=== PATIENT | female | born 1945 | race Caucasian/White ===

== ENCOUNTER 2019-03-01 03:37 | Inpatient (IN) ==
--- NOTE | 2019-02-27 13:25 | EKG Report ---
Test Performed on : 02/27/2019 1:19:50 PM Test Reason : PAT Blood Pressure : / mmHG Vent. Rate : 075 BPM Atrial Rate : 075 BPM P-R Int : 160 ms QRS Dur : 132 ms QT Int : 436 ms P-R-T Axes : 024 -07 152 degrees QTc Int : 486 ms Normal sinus rhythm. Left bundle branch block Abnormal ECG No previous ECGs available Confirmed by Nahid Chacko MD ([id number]) on 02/28/2019 6:14:52 PM
[2019-02-27 13:36] LABS: URINE SOURCE CLEAN CATCH
[2019-02-27 13:40] LABS: BASO# 0.06 X1000 (0.0-0.2); BASO% 0.7 % (0.0-0.8); BILIRUBIN URINE NEGATIVE (NEGATIVE); BLOOD URINE NEGATIVE (NEGATIVE); COLOR YELLOW; EOS# 0.11 X1000 (0.0-0.7); EOS% 1.3 % (0.0-10.0); GLUCOSE URINE NEGATIVE (NEGATIVE); HEMATOCRIT 34.8 % (37.0-47.0); IMM GRAN# 0.02 X1000 (0.0-0.04); IMM GRAN% 0.2 % (0.0-0.5); KETONE URINE NEGATIVE (NEGATIVE); LEUKOCYTES URINE NEGATIVE (NEGATIVE); LYMPH# 2.32 X1000 (1.2-3.4); MCH 28.8 PG (27-31); MCHC 31.6 g/dL (33-37); MCV 91.1 FL (81-99); MONO# 0.43 X1000 (0.11-0.59); MONO% 5.2 % (1.7-9.3); MPV 9.9 FL (7.4-10.4); NEUT# 5.35 X1000 (1.4-6.5); NEUT% 64.6 % (42.2-75.2); NITRITE URINE NEGATIVE (NEGATIVE); PH URINE 7.5; PLT 347 X1000 (130-400); PROTEIN URINE NEGATIVE (NEGATIVE); RBC 3.82 XMIL (4.2-5.4); RDW 14.8 % (11.5-14.5); SP GRAVITY URINE 1.012; TURBIDITY URINE CLEAR (CLEAR); UR EPITHELIAL CELLS <10 /HPF (<10); URINE BACTERIA NEGATIVE /HPF; URINE RBC <10 /HPF (<10); URINE WBC <10 /HPF (<10); UROBILINOGEN URINE NORMAL (NORMAL); WBC 8.29 X1000 (4.8-10.8)
[2019-02-27 13:54] LABS: INR 0.98; PROTIME 13.1 Seconds (11.0-16.0); PTT 32.6 Seconds (22.3-41.8)
[2019-02-27 13:55] LABS: HEMOGLOBIN A1C 8.1 % (4.8-6.0)
[2019-02-27 14:04] LABS: AGAP 11; ALBUMIN 3.6 g/dL (3.5-5.0); BUN 9 mg/dL (8-22); CALCIUM 9.8 mg/dL (8.8-10.2); CHLORIDE 100 mmol/L (98-107); COSMO 282; CREATININE 0.6 mg/dL (0.5-0.9); ESTIMATED GFR > 60; GLUCOSE 163 mg/dL (70-104); POTASSIUM 4.7 mmol/L (3.5-5.1); SODIUM 140 mmol/L (136-145); TCO2 29 mmol/L (25-35)
[2019-03-01] MEDS ORDERED: COLACE ONE (10:15)
[2019-03-01] MEDS ORDERED: LYRICA ONE (10:16)
[2019-03-01] MEDS ORDERED: KEFZOL 1 GM/D5W 1 GM/50 ML IVPB ONE (10:16)
[2019-03-01] MEDS ORDERED: CELEBREX ONE (10:16)
[2019-03-01] MEDS ORDERED: PEPCID ONE (10:16)
[2019-03-01] MEDS ORDERED: REGLAN ONE (10:16)
[2019-03-01] MEDS ORDERED: LR 1,000 ML ONE (10:16)
[2019-03-01] MEDS ORDERED: DIPRIVAN 1% ONE (10:17)
[2019-03-01] MEDS ORDERED: XYLOCAINE-MPF 2% ONE (10:18)
[2019-03-01] MEDS ORDERED: ROBINUL ONE (10:18)
[2019-03-01] MEDS ORDERED: QUELICIN (DOSE) ONE (10:18)
[2019-03-01] MEDS ORDERED: DURAMORPH ONE (11:56)
[2019-03-01] MEDS ORDERED: CYKLOKAPRON 1,000 MG/NS 1,000 MG/100 ML IVPB ONE (11:57)
[2019-03-01] MEDS ORDERED: MARCAINE 0.25% PF ONE ×2 (11:57→12:16)
[2019-03-01] MEDS ORDERED: SODIUM CHLORIDE 0.9% ONE (11:57)
[2019-03-01] MEDS ORDERED: TORADOL ONE ×2 (11:57→12:46)
[2019-03-01] MEDS ORDERED: EXPAREL 1.3% ONE ×2 (11:58)
[2019-03-01] MEDS ORDERED: NEOSPORIN G.U. IRRIGANT ONE (11:58)
[2019-03-01] MEDS ORDERED: VANCOMYCIN ONE (12:16)
[2019-03-01] MEDS ORDERED: OFIRMEV 1000 MG/ISOTONIC SOLN 1,000 MG/100 ML BOTTLE ONE (12:46)
[2019-03-01] MEDS ORDERED: DECADRON ONE (12:46)
[2019-03-01] MEDS ORDERED: ZOFRAN ONE (12:46)
[2019-03-01] MEDS ORDERED: ZEMURON ONE (12:50)
[2019-03-01 13:37] LABS: URINE SOURCE CATH
[2019-03-01 13:52] LABS: BILIRUBIN URINE NEGATIVE (NEGATIVE); BLOOD URINE SMALL (NEGATIVE); COLOR YELLOW; GLUCOSE URINE NEGATIVE (NEGATIVE); KETONE URINE NEGATIVE (NEGATIVE); LEUKOCYTES URINE NEGATIVE (NEGATIVE); NITRITE URINE NEGATIVE (NEGATIVE); PH URINE 5.5; PROTEIN URINE NEGATIVE (NEGATIVE); SP GRAVITY URINE 1.011; TURBIDITY URINE CLEAR (CLEAR); UROBILINOGEN URINE NORMAL (NORMAL)
[2019-03-01 13:54] LABS: UR EPITHELIAL CELLS <10 /HPF (<10); URINE BACTERIA NEGATIVE /HPF; URINE RBC <10 /HPF (<10); URINE WBC <10 /HPF (<10)
[2019-03-01] MEDS ORDERED: NS 1,000 ML ONE (14:21)
[2019-03-01] MEDS: DILAUDID ONE ×3 (14:38→14:49)
--- NOTE | 2019-03-01 14:42 | Diag Imaging Result Doc PS360 ---
SHOULDER 1 VIEW RIGHT - 03/01/2019 INDICATION: R TSA TECHNIQUE: COMPARISON: 02/19/2019 FINDINGS: There has been right total shoulder arthroplasty. No hardware fracture or loosening. Alignment is anatomic. IMPRESSION: No complication. Electronically signed by Lizandro Mello 03/01/2019 2:39 PM
[2019-03-01] MEDS ORDERED: LABETALOL ONE (14:50)
[2019-03-01] MEDS ORDERED: MORPHINE IV PRN ×6 (15:15→17:15)
[2019-03-01] MEDS ORDERED: OXY IR PO PRN ×4 (15:15→17:15)
[2019-03-01] MEDS ORDERED: ZOFRAN PO PRN ×2 (15:15→17:15)
[2019-03-01] MEDS ORDERED: MILK OF MAGNESIA PO PRN ×2 (15:15→17:15)
[2019-03-01] MEDS ORDERED: MORPHINE SULFATE 40 MG PO PRN (16:30)
[2019-03-01] MEDS ORDERED: PERCOCET-5 PO PRN (16:30)
[2019-03-01] MEDS ORDERED: DUONEB (A & A) INH PRN (16:30)
[2019-03-01] MEDS ORDERED: IMODIUM PO PRN (16:30)
[2019-03-01] MEDS ORDERED: VENTOLIN HFA INH PRN ×2 (16:30)
[2019-03-01] MEDS ORDERED: NEURONTIN PO PRN (16:30)
[2019-03-01] MEDS ORDERED: COZAAR PO ONE (16:41)
[2019-03-01] MEDS: NS 1,000 ML IV SCH (17:08)
[2019-03-01] MEDS ORDERED: APRESOLINE IV PRN (17:48)
[2019-03-01] MEDS: KEFZOL 1 GM/D5W 1 GM/50 ML IVPB IV SCH (18:42)
[2019-03-01] MEDS ORDERED: CYKLOKAPRON 1,000 MG/NS 1,000 MG/100 ML IVPB IV ONE (18:45)
[2019-03-01] MEDS: PERIDEX MT SCH (19:46)
[2019-03-01] MEDS: ZOCOR PO SCH (19:47)
--- NOTE | 2019-03-01 20:47 | OPERATIVE NOTE ---
PROCEDURE DATE: 03/01/2019 PREOPERATIVE DIAGNOSIS: Right displaced proximal humerus fracture. POSTOPERATIVE DIAGNOSIS: Right displaced proximal humerus fracture. PROCEDURE: Right reverse shoulder arthroplasty with DePuy Delta Xtend size 8 cemented stem, a 38 + 9 humeral cup, a size 38 + 8 mm lateralized Eccentric Glenosphere, a standard Metaglene. SURGEON: Dr. Bashir Vu. NETWORK ANNOUNCER: NILDA Noonan, who was necessary for proper positioning, retraction, manipulation of the extremity during the case, and improved efficiency. ANESTHESIA: General. IV FLUIDS: 1500 mL lactated Ringer's. ESTIMATED BLOOD LOSS: 150 mL. COMPLICATIONS: None. INDICATION: The patient is a 74-year-old female who is status post a fall on 02/19/2019, sustaining a right proximal humeral fracture. She presented to the office and had some increased displacement on the most recent x-ray, and a recommendation to proceed with right reverse total shoulder arthroplasty was offered. The risks and benefits of surgery were explained, including the risks of anesthesia, , bleeding, infection, failure to relieve pain, postoperative stiffness, nerve injury, blood clots, and other imponderables. All questions were answered. The patient and family wished to proceed with surgery. DETAILS OF OPERATION: The patient was taken to the operating room and placed supine on the operating table. Once adequate anesthesia was obtained, the patient was placed in semi-Sanchez beach-chair position. The right shoulder was subsequently prepped and draped in the usual sterile fashion. A standard deltopectoral incision was made with a skin knife. Hemostasis was obtained using electrocautery. The deltopectoral interval was then developed and Alexander retractor was placed. The clavipectoral fascia was elevated and the fracture site was identified. The proximal bone fragment, including the humeral head and tuberosity fragments, were identified. They were then removed under sharp dissection. After removing the remaining bone debris, attention then turned to the glenoid. The biceps tendon was released from its insertion site. Circumferential dissection was then performed with a deep knife. Attention then turned to the glenoid. Circumferential dissection was performed with a deep knife. A guide was then placed on the glenoid and a guide pin was placed. Reaming was then conducted. The central hole was then dilated. The guide pin was removed. The wound was copiously irrigated with pulsatile lavage. A standard Metaglene was then placed. Two locking screws were placed and one nonlocking screw. Had good fixation. The wound was copiously irrigated once again. A 38 + 8 mm lateralized Eccentric Glenosphere was then placed with eccentricity placed inferiorly. After this was performed, attention was then turned to the humerus. Reaming was then conducted to size 8 mm. A trial stem was then placed to determine the correct height. After this was performed, vancomycin was mixed with cement on the back table. Intramedullary canal was copiously irrigated. The cement was then placed in the intramedullary canal. The humeral stem was then placed to the appropriate height and approximately 15 degrees of retroversion. After cement had cured, trial cup size was then placed and a 38 + 9 humeral cup had excellent stability range of motion. Trial cup was removed. The wound was copiously irrigated. The 38 + 9 humeral cup was then impacted. Shoulder was reduced and carried through range of motion. It had excellent stability and range of motion. Exparel was placed in deep soft tissue as well as the subcutaneous tissue. The wound was copiously irrigated once again with pulsatile lavage. A 2-0 Vicryl was used to repair subcutaneous tissue followed by running 2-0 Prolene. Benzoin and Steri-Strips were applied. Adaptic, sterile 4 x 4's, ABD pad, and tape were applied to the right shoulder followed by a shoulder immobilizer. All counts were correct. Patient tolerated the procedure well and was transferred to the recovery room in stable condition. cc: Bashir Vu MD
--- NOTE | 2019-03-01 22:38 | CONSULTATION ---
DATE OF CONSULTATION: 03/01/2019 PRIMARY CARE PHYSICIAN: Dr. Palmer. ATTENDING: Orthopedics. CHIEF COMPLAINT: Consulted for medical management of comorbidities. HISTORY OF PRESENTING ILLNESS: This is a 74-year-old female who presented for a right shoulder total arthroplasty today. Tolerated the procedure well. Has a history of hypertension and diabetes. She has had some elevation in her blood pressure. When she arrived she was 151/92. Currently, she is up to 184/74. We will continue her home medications and we will also place her on hydralazine 10 mg IV q.4 hours p.r.n. for systolic blood pressure greater than 190, diastolic greater than 100, and we will continue to follow this patient throughout the remainder of her hospitalization. PAST MEDICAL HISTORY: Diabetes type 2, hypertension, panic attacks, GERD and arthritis. PAST SURGICAL HISTORY: Hysterectomy, bilateral feet surgery, cholecystectomy and appendectomy. FAMILY HISTORY: Reviewed and noncontributory. SOCIAL HISTORY: She currently lives with family. She is a former smoker. Denies any alcohol or illicit drug use. ALLERGIES TO: Meperidine, acetaminophen and hydrocodone. HOME MEDICATIONS: They are holding her Zofran 4 mg p.o. p.r.n.. Continuing the following: ProAir 1 puff inhalation p.r.n., Ventolin inhaler 1 puff inhalation p.r.n., aspirin 81 mg p.o. daily, Pristiq 50 mg p.o. daily, esomeprazole 40 mg p.o. daily, estradiol 1 mg p.o. daily, fenofibrate 145 mg p.o. daily, Lasix 80 mg p.o. daily, gabapentin 600 mg 2 tablets p.o. q.8 hours p.r.n., Combivent Respimat inhalation p.r.n., loperamide 2 mg p.o. p.r.n., losartan 25 mg p.o. daily, morphine sulfate 40 mg p.o. p.r.n., Percocet 5 one p.o. p.r.n., propranolol 10 mg p.o. daily, potassium 8 mEq p.o. daily, simvastatin 20 mg p.o. at bedtime. LABORATORY DATA: No new labs today, except for her glucose was 145. Urinalysis was negative. Shoulder x-ray of the right shoulder showed no complications and there had been a total right shoulder arthroplasty. No hardware fracture or loosening. Alignment is anatomic. REVIEW OF SYSTEMS: She denied any fever, chills, blurred vision, dizziness, chest pain, coughing, shortness of breath. She denied any abdominal pain, constipation, diarrhea, burning or hurting with urination. PHYSICAL EXAMINATION: Vital signs: On arrival, she had a temperature of 97.8 degrees, pulse 70, respirations 18, blood pressure 117/100, saturating 96% on room air. Currently, her blood pressure is 184/74. General: This is a 74-year-old female who is sitting up in the bed. Answers questions appropriately. HEENT: Normocephalic, atraumatic. Normal ENT inspection. Oropharynx and nares are clear. Eyes: Pupils are equal, round, and reactive to light and accommodation. Extraocular movements are intact. Neck: Normal inspection. Normal range of motion. Lungs: Clear to auscultation bilaterally with equal lung expansion. Chest wall movement. Heart: Regular rate and rhythm. No murmurs, rubs, or gallops. Abdomen: Soft, nontender, nondistended. Bowel sounds are present x4 quadrants. Musculoskeletal: She has 5/5 strength bilateral lower extremities and left upper extremity. Her right extremity has a dressing to her right shoulder and is currently in a sling status post her right total shoulder arthroplasty today. Neurological: The cranial nerves 2-12 appear grossly intact. ASSESSMENT: 1. Status post right total shoulder arthroplasty. 2. Hypertension. 3. Diabetes type 2. 4. Gastroesophageal reflux disease. OUR PLAN: We will continue her home medications. I will place her on hydralazine 10 mg IV q.4 hours p.r.n. for a systolic blood pressure greater than 190, diastolic greater than 100. Continue her current pain management regimen per Orthopedics. Placed on a diabetic diet. Physical therapy will be following and they will recheck hemoglobin and hematocrit and a basic metabolic in the a.m.. We appreciate the consultation and will follow this patient throughout the remainder of her stay. Dictated by NILDA Sparks for El Montaño MD Addendum: Patient seen and examined by myself. Agree with NILDA note. It reflects my assessment and plan. Patient is being admitted to hospital for right shoulder arthroplasty. We have been consulted for medical management. Will be checking accuchecks before meals and also at bedtime. cc: NILDA Sparks MD Robert S. Tapscott, MD Dr. Gillespie MTDD
[2019-03-02] MEDS: KEFZOL 1 GM/D5W 1 GM/50 ML IVPB IV SCH (02:31)
[2019-03-02] MEDS: PERIDEX MT SCH ×3 (03:28→23:43)
[2019-03-02] MEDS: ZOCOR PO SCH ×2 (03:28→23:44)
[2019-03-02] MEDS: NS 1,000 ML IV SCH (04:44)
[2019-03-02 08:02] LABS: HEMATOCRIT 26.2 % (37.0-47.0); HEMOGLOBIN 8.1 g/dL (12.0-16.0)
[2019-03-02 08:16] LABS: AGAP 10; BUN 11 mg/dL (8-22); CALCIUM 8.1 mg/dL (8.8-10.2); CHLORIDE 100 mmol/L (98-107); COSMO 278; CREATININE 0.8 mg/dL (0.5-0.9); ESTIMATED GFR > 60; GLUCOSE 222 mg/dL (70-104); POTASSIUM 4.2 mmol/L (3.5-5.1); SODIUM 136 mmol/L (136-145); TCO2 26 mmol/L (25-35)
[2019-03-02] MEDS: ESTRACE PO SCH (08:29)
[2019-03-02] MEDS: PRISTIQ ER PO SCH (08:29)
[2019-03-02] MEDS: INDERAL PO SCH (08:30)
[2019-03-02] MEDS: TRICOR PO SCH (08:31)
[2019-03-02] MEDS: MICRO-K PO SCH (08:31)
[2019-03-02] MEDS: LASIX PO SCH (08:31)
[2019-03-02] MEDS: ASPIRIN PO SCH (08:32)
[2019-03-02] MEDS: COZAAR PO SCH (08:32)
[2019-03-02] MEDS: NEXIUM PO SCH (11:27)
[2019-03-02] MEDS: HUMALOG SUBQ SCH ×3 (12:35→23:51)
--- NOTE | 2019-03-02 13:20 | Diag Imaging Result Doc PS360 ---
EXAM: CHEST-1 VIEW HISTORY: rehab TECHNIQUE: Single view COMPARISON: None. FINDINGS: The lungs are well expanded. The heart is not enlarged. The vessels are not distended. There are no infiltrates. No effusion identified. There is a granuloma in the lower left lung with calcified left hilar lymph nodes. Likely minimal scarring in the mid left lung. IMPRESSION: No acute abnormality Electronically signed by Niles Siddiqui 03/02/2019 1:17 PM
--- NOTE | 2019-03-02 17:10 | PROGRESS NOTE ---
DATE: 03/02/2019 SUBJECTIVE: The patient reports feeling fine. She had her right shoulder replacement this morning. She is feeling okay. OBJECTIVE: Vital Signs: Temperature 97.8 degrees, heart rate 68, respiratory rate 16, blood pressure 132/53, O2 saturation 98% on room air. General: This is a 74-year-old female lying in bed, in no acute distress. Cardiovascular: S1, S2 heard. No murmurs, gallops, or rubs. Regular rate and rhythm. Respiratory: Clear bilaterally to auscultation. No work of breathing or using accessory muscles. Abdomen: Soft. Nontender to palpation. Bowel sounds present. No organomegaly. Upper Extremities: Right shoulder covered by dressing, clean. Both lower extremities: No clubbing, cyanosis, or edema. Peripheral pulses present in both legs. Neurological: The patient is alert, oriented x3. Moves extremities except the right upper extremity. LABORATORY DATA: Reviewed. ASSESSMENT AND PLAN: 1. Status post right total shoulder arthroplasty. Orthopedics following this patient. 2. Hypertension. Blood pressure is under control. We will continue with the same management. 3. Diabetes mellitus type 2. We will continue with sliding scale insulin. Accu-Chek before meals and also at bedtime. 4. Gastroesophageal reflux disease. We will continue with Protonix. 5. Disposition. We will continue to follow this patient on a daily basis. cc: El Montaño MD
--- NOTE | 2019-03-02 18:51 | ORTHOPAEDICS PROGRESS NOTE ---
DATE: 03/02/2019 SUBJECTIVE: Ms. Campbell is status post day 1 of a right reverse total shoulder arthroplasty due to a fracture from a fall. She was talking about how she does not have much help at home as her is unable to help her ambulate and mobilize from place to place. She would like to discuss rehab placement due to this, and the fact that she also has neuropathy and type 2 diabetes as well. OBJECTIVE: Ms. Campbell is lying in bed at this time. They are changing her dressing at the present. There is no excessive drainage noted to her surgical dressing. Her incision is clean, dry, and intact. There is no surrounding redness to suggest infection at this time. She has full movement of her fingers of her right hand. Her sensation is intact. She does have some bruising noted to her right upper chest wall as well as down her arm from her fall. ASSESSMENT: 1. Status post day 1 right reverse total shoulder arthroplasty. 2. Type 2 diabetes. 3. Hypertension. PLAN: After discussing with Ms. Campbell and Director Of Consulting Services, they have spoken with her daughter and , who also agreed that it would be best if Ms. Campbell were to go to rehab. She wishes to go to [facility], which is near her home. Director Of Consulting Services is looking for placement at this time, and we are waiting on a prior authorization from [facility]. Dictated by NILDA Noonan for Bashir Vu MD cc: MD El Montalvo MD
[2019-03-03] MEDS ORDERED: OXY IR PO PRN ×2 (06:28)
[2019-03-03] MEDS ORDERED: ULTRAM PO PRN (06:36)
[2019-03-03 07:09] LABS: HEMATOCRIT 27.2 % (37.0-47.0); HEMOGLOBIN 8.3 g/dL (12.0-16.0); MCH 28.5 PG (27-31); MCHC 30.5 g/dL (33-37); MCV 93.5 FL (81-99); MPV 10.2 FL (7.4-10.4); RBC 2.91 XMIL (4.2-5.4); RDW 14.9 % (11.5-14.5); WBC 10.25 X1000 (4.8-10.8)
[2019-03-03 07:42] LABS: AGAP 10; ALBUMIN 3.5 g/dL (3.5-5.0); BUN 12 mg/dL (8-22); CALCIUM 8.6 mg/dL (8.8-10.2); CHLORIDE 104 mmol/L (98-107); COSMO 287; CREATININE 0.7 mg/dL (0.5-0.9); ESTIMATED GFR > 60; GLUCOSE 103 mg/dL (70-104); PHOSPHORUS 2.2 mg/dL (2.7-4.5); SODIUM 144 mmol/L (136-145); TCO2 30 mmol/L (25-35)
[2019-03-03] MEDS: ASPIRIN PO SCH (08:44)
[2019-03-03] MEDS: PRISTIQ ER PO SCH (08:45)
[2019-03-03] MEDS: NEXIUM PO SCH (08:45)
[2019-03-03] MEDS: COZAAR PO SCH (08:45)
[2019-03-03] MEDS: ESTRACE PO SCH (08:45)
[2019-03-03] MEDS: INDERAL PO SCH (08:46)
[2019-03-03] MEDS: MICRO-K PO SCH (08:46)
[2019-03-03] MEDS: TRICOR PO SCH (08:46)
[2019-03-03] MEDS: LASIX PO SCH (08:46)
[2019-03-03] MEDS: PERIDEX MT SCH (08:47)
--- NOTE | 2019-03-03 09:38 | PROGRESS NOTE ---
DATE: 03/03/2019 Ms. Campbell is a patient of Dr. Ryan Palmer. A 74-year-old presented with right shoulder total arthroplasty which was done on 03/01/[address] Vu. History of hypertension, history of diabetes mellitus type 2, some elevation in her blood pressure and gastroesophageal reflux disease and osteoarthritis. She also had a history of anxiety with panic attacks. PAST SURGICAL HISTORY: Hysterectomy, bilateral feet surgery, cholecystectomy, and appendectomy. OBJECTIVE: The patient is doing well and is comfortable. She is hoping she gets to go home today.Vital Signs: Temp 98.6 degrees, pulse 94, respirations 16. Blood pressures have been 184/74, 139/68, 122/50, 167/61. HEENT: Pupils are equal. Lungs: Are clear in all lung cavazos. Cardiovascular: Regular rhythm and rate without murmur or S3. Abdomen: Is soft. Skin: Is warm and dry. Urine output is 5700 mL. ASSESSMENT AND PLAN: 1. Status post right shoulder arthroplasty, should be able to go to rehab tomorrow morning. 2. Hypertension. Blood pressure is under good control. Continue same management. 3. Diabetes mellitus type 2. She is on sliding scale. 4. Gastroesophageal reflux. Continue Protonix. 5. Disposition. Plan to go to rehab. We will get things set up. Hopefully, she can go first thing in the morning. REVIEW OF HER ORDERS: She is on Zocor 20 mg at bedtime, normal saline at 75 mL an hour, aspirin 81 mg a day, Nexium 40 mg a day, Estrace 1 mg daily, Tricor 445 mg p.o. daily, Lasix 80 mg a day, Neurontin 1200 mg p.o. q.8 hours, Apresoline she gets 10 mg IV q.4 hours p.r.n. hypertension, Cozaar 25 mg a day, Ultram 50 mg p.o. q.6 hours p.r.n. LAB: From this morning, white count 83295, hemoglobin 8.3, hematocrit 27, platelet count 355,000. Sodium 144, potassium 4.0, chloride 104, bicarb 30, BUN 12, creatinine 0.7. Blood sugars 113, 297, 103, 89. cc: Keyon Augustin MD
--- NOTE | 2019-03-03 12:20 | DISCHARGE SUMMARY ---
ADMISSION DATE: 03/01/2019 DISCHARGE DATE: 03/03/2019 DATE OF ADMISSION: 03/01/2019. DATE OF DISCHARGE: 03/03/2019. ADMITTING DIAGNOSES: 1. Right displaced proximal humeral fracture. 2. Hypertension. 3. Type 2 diabetes. DISCHARGE DIAGNOSES: 1. Right displaced proximal humeral fracture. 2. Hypertension. 3. Type 2 diabetes. 4. Status post right reverse total shoulder arthroplasty. BRIEF HISTORY: The patient is a pleasant 74-year-old female, who is status post fall sustained on 02/19/2019 sustaining a right proximal humeral fracture. The patient presented in the office, and had some increased displacement on the most recent x-ray. Given her amount of displacement, the recommendation was to proceed with right reverse total shoulder arthroplasty was offered. Risks and benefits of surgery were explained, and all questions were answered. The patient and family agreed with treatment plan. HOSPITAL COURSE AND TREATMENT: Patient was admitted to the hospital and underwent right reverse total shoulder arthroplasty. The patient tolerated the procedure well. Later that evening after surgery, the patient did have some elevated blood pressure on the evening after surgery with a diastolic of 100 and systolic up to 195. Hospitalist was consulted, and Dr. David Aguilera evaluated the patient and she was placed on the medication, and she responded with medication. Her blood pressure remained stable the following day, and has remained stable. The patient was slow to mobilize with physical therapy. It was felt she would benefit from inpatient rehabilitation. The patient's family agreeable to this. Prior to discharge, patient is afebrile tolerating a regular diet. Her wound looked good. There are no signs or symptoms of infection. DISCHARGE MEDICATIONS: 1. Tramadol 50 mg 1 to 2 p.o. q.6 hours p.r.n. pain. 2. For remaining medications, please see medication list. DISCHARGE INSTRUCTIONS: 1. The patient discharged for inpatient rehabilitation. 2. Consult physical therapy with passive range of motion exercises of the right shoulder, passive and active range of motion of the right elbow, wrist and fingers, and gait training with nonweightbearing right upper extremity. 3. Discontinue sutures in 10 days. 4. Follow up in the office in 3 to 4 weeks. cc: MD Keyon Montalvo MD MTDD
[2019-03-03] MEDS: HUMALOG SUBQ SCH (13:04)
--- NOTE | 2019-03-03 14:34 | DISCHARGE SUMMARY ---
ADMISSION DATE: 03/01/2019 DISCHARGE DATE: 03/03/2019 DISCHARGE DISPOSITION: To [facility] Rehab. PRIMARY CARE PHYSICIAN: Dr. Ryan Palmer. HISTORY OF PRESENT ILLNESS: She came in on 03/01/2019. A 74-year-old white female presented for right shoulder total arthroplasty. Tolerated the procedure well. History of hypertension and diabetes. So, she had some elevation in her blood pressure. When she arrived, it was 151/92. Blood pressures were followed and they remained stable. PAST MEDICAL HISTORY: Diabetes mellitus type 2, hypertension, panic attacks, gastroesophageal reflux disease, osteoarthritis. PAST SURGICAL HISTORY: Hysterectomy, bilateral feet surgery, cholecystectomy, and appendectomy. HOSPITAL COURSE: The patient underwent right total shoulder arthroplasty and tolerated it well, tolerated physical therapy. Blood pressures remained stable and she felt ready to go home and be discharged on 03/03/2019, continue her range of motion. Dr. Vu will take the sutures out in [address] Vu has already dictated discharge history and physical. DISCHARGE MEDICATIONS: Arranged. She will be on aspirin 81 mg a day, Pristiq ER 50 mg daily, Nexium 40 mg a day, Estrace 1 mg a day, Tricor 145 mg a day, Lasix 80 mg p.o. daily, Neurontin 1200 mg p.o. q.8 hours p.r.n., Apresoline. We will stop Cozaar 25 mg daily. Imodium 2 mg p.o. p.r.n. diarrhea, and she is getting Oxy IR 5 mg p.o. q.4 hours p.r.n. pain 2 out of 6, she will get 10 mg pain scale of 7 to 10. She gets Inderal 10 mg a day, Zocor 20 mg a day, Ultram 50 mg q.6 p.r.n. cc: Keyon Augustin MD
--- NOTE | 2019-03-03 14:37 | ORTHOPAEDICS PROGRESS NOTE ---
DATE: 03/03/2019 SUBJECTIVE: The patient is a 74-year-old female who is 2 days status post right reverse shoulder arthroplasty. Patient is currently resting comfortably this morning. OBJECTIVE: On physical exam, her wound looks good. There are no signs or symptoms of infection. She has expected swelling and diffuse ecchymosis to the right upper extremity. She is able flex and extend all of her fingers. LABORATORY DATA: Her labs are pending this morning. Her hemoglobin and hematocrit from yesterday was 8.1 and 26.2. IMPRESSION: Postoperative day #2 status post right reverse total shoulder arthroplasty. PLAN: At this point, social service has been consulted for discharge planning for inpatient rehabilitation. We anticipate discharge to rehab tomorrow. We will begin mobilization with nonweightbearing to the right upper extremity. cc: MD Keyon Montalvo MD
[2019-03-03 15:46] VITALS: BP 141/63
--- NOTE | 2019-03-03 20:48 | ORTHOPAEDICS PROGRESS NOTE ---
DATE: 03/03/2019 SUBJECTIVE: The patient is a 74-year-old female who is 2 days status post right reverse shoulder arthroplasty. The patient is currently resting comfortably. OBJECTIVE: On physical exam, the patient's right upper extremity and her wound looks good. There are no signs or symptoms of infection. She is grossly neurovascularly intact. She has resolving diffuse ecchymosis along the right upper extremity. LABORATORY DATA: Her hemoglobin and hematocrit are 8.3 and 27.2. IMPRESSION: Postoperative day #2, status post right reverse shoulder arthroplasty. PLAN: At this point the patient is slow to mobilize with physical therapy. It is felt she would benefit from inpatient rehabilitation. The patient and family are agreeable to this. Social Service has been consulted for discharge planning. cc: MD Keyon Montalvo MD MTDD
--- NOTE | 2019-03-03 22:51 | DISCHARGE SUMMARY ---
ADMISSION DATE: 03/01/2019 DISCHARGE DATE: 03/03/2019 ADMITTING DIAGNOSES: 1. Right displaced proximal humeral fracture. 2. Hypertension. 3. Diabetes type 2. DISCHARGE DIAGNOSES: 1. Hypertension. 2. Diabetes type 2. 3. Status post right reverse shoulder arthroplasty. BRIEF HISTORY: The patient is a pleasant 74-year-old female who is status post fall on 02/19/2019, sustaining a right displaced proximal humeral fracture. The patient presented in the office and had some increased displacement and, given the patient's findings, a recommendation to proceed with right reverse total shoulder arthroplasty was offered. Risks and benefits of surgery were explained, including the risks of anesthesia, , bleeding, infection, failure to relieve pain, postoperative stiffness, nerve injury, blood clots, and other imponderables. All questions were answered. The patient and family wished to proceed with surgery. HOSPITAL COURSE AND TREATMENT: The patient was admitted to the hospital and underwent right reverse shoulder arthroplasty. She tolerated the procedure well. Postoperatively, the patient did have some elevated blood pressure with 117/100 and the hospitalist's service was consulted. Dr. El Montaño evaluated the patient and adjusted her blood pressure medicine and her blood pressure then resolved and normalized. By postoperative day #2, her hemoglobin and hematocrit had stabilized too. It was felt the patient was somewhat slow to mobilize in physical therapy, being restricted nonweightbearing of the right upper extremity and a recommendation to proceed for inpatient rehabilitation was offered. The patient and family were agreeable to this. Prior to discharge, the patient was afebrile, tolerating a regular diet. Her wound looked good. There were no signs or symptoms of infection. DISCHARGE MEDICATIONS: Tramadol 50 mg 1 to 2 p.o. q.6 hours p.r.n. pain. For remaining medications, please see medication list. DISCHARGE INSTRUCTIONS: 1. The patient was discharged for inpatient rehabilitation. 2. Discontinue suture on right in 10 days. 3. Consult physical therapy for gait training with nonweightbearing right upper extremity. We will also proceed with passive range of motion exercises of the right upper extremity. The patient may be active range of motion exercises of the right elbow, wrist and fingers. FOLLOWUP INSTRUCTIONS: The patient to followup in 3 to 4 weeks in the office. cc: MD Keyon Montalvo MD
== END 2019-03-03 16:34 | DRG 483 ==
LOC: SURHOLD 03:37 → 4N 14:10
PROVIDERS: ADMIT Emergency Medicine; ATTEND Orthopaedic Surgery Adult Reconstructive Orthopaedic Surgery

== ENCOUNTER 2019-05-24 13:49 | Observation (INO) ==
[2019-05-24] MEDS ORDERED: NS 1,000 ML IV ONE (14:09)
--- NOTE | 2019-05-24 14:22 | Diag Imaging Result Doc PS360 ---
CHEST-PORTABLE - 05/24/2019 INDICATION: stroke like symptoms COMPARISON: 03/02/2019 FINDINGS: Stable calcified granulomas in the left lung base and left hilum. Stable linear atelectasis in the left midlung. No infiltrates or edema. Heart size and pulmonary vascularity is normal. IMPRESSION: No acute disease or change from prior. Electronically signed by Lizandro Mello 05/24/2019 2:20 PM
--- NOTE | 2019-05-24 14:42 | EKG Report ---
Test Performed on : 05/24/2019 2:21:25 PM Test Reason : Stroke like symptoms Blood Pressure : / mmHG Vent. Rate : 071 BPM Atrial Rate : 071 BPM P-R Int : 146 ms QRS Dur : 140 ms QT Int : 450 ms P-R-T Axes : 008 -10 150 degrees QTc Int : 489 ms Normal sinus rhythm. Left bundle branch block Abnormal ECG When compared with ECG of 27-FEB-2019 13:19, No significant change was found Unconfirmed Result
[2019-05-24 15:01] LABS: BASO# 0.05 X1000 (0.0-0.2); BASO% 0.5 % (0.0-0.8); EOS# 0.13 X1000 (0.0-0.7); EOS% 1.2 % (0.0-10.0); HEMATOCRIT 39.8 % (37.0-47.0); HEMOGLOBIN 12.9 g/dL (12.0-16.0); IMM GRAN# 0.02 X1000 (0.0-0.04); IMM GRAN% 0.2 % (0.0-0.5); LYMPH# 2.44 X1000 (1.2-3.4); LYMPH% 22.5 % (20.5-51.1); MCH 27.4 PG (27-31); MCHC 32.4 g/dL (33-37); MCV 84.5 FL (81-99); MONO# 0.63 X1000 (0.11-0.59); MONO% 5.8 % (1.7-9.3); MPV 10.5 FL (7.4-10.4); NEUT# 7.56 X1000 (1.4-6.5); NEUT% 69.8 % (42.2-75.2); PLT 288 X1000 (130-400); RBC 4.71 XMIL (4.2-5.4); RDW 14.4 % (11.5-14.5); WBC 10.83 X1000 (4.8-10.8)
[2019-05-24 15:06] LABS: INR 1.05; PROTIME 13.8 Seconds (11.0-16.0)
[2019-05-24 15:16] LABS: AGAP 10; ALB/GLOB RATIO 1.3; ALBUMIN 3.8 g/dL (3.5-5.0); ALKALINE PHOSPHATASE 87 U/L (32-104); BUN 8 mg/dL (8-22); CALCIUM 9.1 mg/dL (8.8-10.2); CHLORIDE 102 mmol/L (98-107); COSMO 283; CREATININE 0.8 mg/dL (0.5-0.9); ESTIMATED GFR > 60; GLUCOSE 134 mg/dL (70-104); GOT 10 U/L (10-30); GPT 11 U/L (10-36); POTASSIUM 4.6 mmol/L (3.5-5.1); SODIUM 142 mmol/L (136-145); TCO2 30 mmol/L (25-35); TOTAL BILIRUBIN 0.23 mg/dL (0.20-1.00); TOTAL PROTEIN 6.8 g/dL (6.3-8.3)
[2019-05-24 15:26] LABS: URINE SOURCE CATH
[2019-05-24 15:41] LABS: BILIRUBIN URINE NEGATIVE (NEGATIVE); BLOOD URINE MODERATE (NEGATIVE); COLOR ORANGE; GLUCOSE URINE NEGATIVE (NEGATIVE); KETONE URINE NEGATIVE (NEGATIVE); LEUKOCYTES URINE LARGE (NEGATIVE); NITRITE URINE POSITIVE (NEGATIVE); PH URINE 5.5; PROTEIN URINE 50 mg/dL (NEGATIVE); SP GRAVITY URINE 1.012; TURBIDITY URINE TURBID (CLEAR); UROBILINOGEN URINE NORMAL (NORMAL)
[2019-05-24] MEDS ORDERED: ROCEPHIN 1 GM in NS 50 ML IV ONE (15:42)
[2019-05-24 15:50] LABS: UR AMPHETAMINES QUAL NONE DETECTED (NONE DETECT); UR BARBITUATES QUAL NONE DETECTED (NONE DETECT); UR BENZODIAZEPIN QUAL NONE DETECTED (NONE DETECT); UR CANNABINOIDS QUAL NONE DETECTED (NONE DETECT); UR COCAINE QUAL NONE DETECTED (NONE DETECT); UR METHADONE QUAL NONE DETECTED (NONE DETECT); UR OPIATES QUAL NONE DETECTED (NONE DETECT); UR OXYCODONE QUAL NONE DETECTED (NONE DETECT); UR PCP QUAL NONE DETECTED (NONE DETECT)
[2019-05-24 15:55] LABS: UR EPITHELIAL CELLS <10 /HPF (<10); URINE BACTERIA 4+ /HPF; URINE CASTS NONE SEEN; URINE CRYSTALS NONE SEEN; URINE RBC TNTC /HPF (<10); URINE SMALL ROUND CELLS NONE SEEN; URINE WBC TNTC /HPF (<10); URINE YEAST NONE SEEN
--- NOTE | 2019-05-24 16:14 | Diag Imaging Result Doc PS360 ---
EXAM: CT HEAD W/O CONTRAST INDICATION: stroke like symptoms TECHNIQUE: This exam was performed using automated exposure control, adjustment of mA or kV according to patient size, and/or use of iterative reconstruction technique. COMPARISON: 02/19/2019 FINDINGS: There is patchy low attenuation in the periventricular and subcortical white matter suggesting mild microangiopathy, stable. There is no definite acute infarct given the limited sensitivity of CT versus MRI. There is no discrete intracranial mass, mass effect, or intracranial hemorrhage. The surrounding soft tissues and bony structures are essentially unremarkable. IMPRESSION: Stable chronic appearing white matter changes. No definite acute intracranial pathology by CT. Electronically signed by Wade Palm 05/24/2019 4:11 PM
--- NOTE | 2019-05-24 16:22 | Diag Imaging Result Doc PS360 ---
EXAM: CT ABD/PELVIS W/IV CONT ONLY INDICATION: rectal bleeding, vaginal bleeding, RLQ pain TECHNIQUE: This exam was performed using automated exposure control, adjustment of mA or kV according to patient size, and/or use of iterative reconstruction technique. COMPARISON: None. FINDINGS: There is a calcified granuloma at the left lung base. There is mild subsegmental atelectasis and/or scarring at the lung bases. There has been a previous cholecystectomy. There is mild compensatory biliary dilatation. The liver, spleen, pancreas, and kidneys are essentially unremarkable. The urinary bladder is partially distended. Urinary bladder wall is thickened and there is pericystic inflammatory stranding suggesting cystitis. There has been a previous hysterectomy. There are bilateral 2 cm cystic structures in the pelvis in the region where the ovaries would be expected. However, there has reportedly been a total hysterectomy. Please correlate with surgical history. There is trace nonspecific free fluid layering in the pelvis. There has been a prior appendectomy. There is uncomplicated diverticulosis coli, mainly involving the sigmoid colon. No focal bowel wall thickening or bowel obstruction is identified. There is a tiny hiatal hernia. The remainder of the GI tract is essentially unremarkable. No free abdominal gas is identified. There is spinal degenerative arthropathy and there is chronic appearing height loss at the L1 vertebral body. There are degenerative changes of both hips. There is no evidence of acute osseous abnormality. IMPRESSION: 1.Thickened urinary bladder wall with adjacent stranding suggesting cystitis. 2.Uncomplicated diverticulosis coli. 3.Two nonspecific cystic lesions in the pelvis in the expected location of the ovaries. However, there has reportedly been a prior total hysterectomy. 4.Other incidental/nonacute findings detailed above. Electronically signed by Wade Palm 05/24/2019 4:19 PM
--- NOTE | 2019-05-24 17:46 | PROVIDER DOCUMENTATION ---
This chart was entered by Valerie Palm Scribe, acting as scribe for Gabe Mejia MD. HPI-Neurological Disorder - General Stated Complaint: POSS GI BLEED Time Seen by Provider: 05/24/19 13:50 Source: patient, EMS Allergies/Adverse Reactions: Patient Allergies Allergy/AdvReac Type Severity Reaction Status Date / Time meperidine [From Demerol] Allergy ITCHING Verified 02/27/19 12:45 oxycodone [From Percocet] Allergy Unknown Verified 03/03/19 06:00 acetaminophen [From [place]] AdvReac NAUSEA Verified 02/27/19 12:45 hydrocodone [From [place]] AdvReac NAUSEA Verified 02/27/19 12:45 Home Medications: Home Medication List Medication Instructions Recorded Confirmed Last Taken Type Aspirin 1 tab PO DAILY 02/19/19 02/27/19 02/28/19 21:00 History Esomeprazole Magnesium 1 tab PO DAILY 02/19/19 02/27/19 02/28/19 21:00 History Estradiol 1 tab PO DAILY 02/19/19 02/27/19 02/28/19 21:00 History Furosemide 1 tab PO DAILY 02/19/19 02/27/19 02/28/19 21:00 History Gabapentin 2 tab PO Q8H PRN 02/19/19 02/27/19 02/28/19 21:00 History Losartan [Cozaar] 25 mg PO DAILY 02/19/19 02/27/19 02/28/19 21:00 History Potassium Chloride E.r. [Micro-K] 1 tab PO DAILY 02/19/19 02/27/19 02/28/19 21:00 History Propranolol [Inderal] 10 mg PO DAILY 02/19/19 02/27/19 03/01/19 05:00 History Albuterol Sulfate [Proair Hfa] 8.5 gm INHALATION PRN PRN 02/27/19 02/27/1902/15 21:00 History Albuterol Sulfate [Ventolin Hfa] 18 gm INHALATION PRN PRN 02/27/19 02/27/19 21:00 History Desvenlafaxine Succinate [Pristiq] 50 mg PO DAILY 02/27/19 02/27/19 02/28/19 2 1:00 History Fenofibrate [Tricor] 145 mg PO DAILY 02/27/19 02/27/19 02/28/19 21:00 History Ipratropium/Albuterol Sulfate 4 gm INHALATION PRN PRN 02/27/19 02/27/19 02/28/19 21:00 History [Combivent Respimat 20-100 Mcg] Loperamide [Imodium] 2 mg PO PRN PRN 02/27/19 02/27/19 02/28/19 21:00 History Ondansetron HCl [Zofran] 4 mg PO PRN PRN 02/27/19 02/27/19 Unknown History SIMVAstatin [Zocor] 20 mg PO QHS 02/27/19 02/27/19 02/28/19 21:00 History Tramadol [Ultram] 50 mg PO Q6H PRN PRN tab 03/03/19 Unknown Rx - History of Present Illness-Neuro Nature of Presenting Problem: pt is a 74 yowf arriving via [facility] due to possible GI bleed and CVA. 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 pt had rt shoulder replaced 1-2 months ago. pt also is passing blood vaginally and rectally, pt sts she has had dark tarry stools as well as diarrhea. pt was given imodium. pt reports having lost 40 lbs after shoulder sx and has a mcdowell. pt is poor hx. pt is a&ox3 but has moments of confusion and decreased hearing. Headache Location: reports: occipital Severity: reports: mild Onset/Duration: reports: this afternoon Timing: reports: still present Context: reports: impaired speech, other (weakness, decreased hearing) Character of Altered Mental Status: reports: other (questionable flight of ideas) Any recent trauma/injury?: reports: none Character of Deficits: reports: impaired speech, decreased ability to stand, decreased ability to walk Cognitive Baseline: alert but confused Associated Symptoms: reports: headache, trouble walking, weakness (pt sts is old LLE) Review of Systems - Adult - REVIEW OF SYSTEMS - ADULT ROS:: limited per condition Constitutional: reports: see HPI, weight loss (40lbs), other (moments of confusion). denies: chills, fever, fatique Eyes: reports: no symptoms reported Ears, Nose, Mouth & Throat: reports: see HPI, hearing loss (decreased). denies: ear discharge, ear pain, sinus problem Cardiovascular: reports: no symptoms reported Respiratory: reports: no symptoms reported Gastrointestinal: reports: see HPI, diarrhea, rectal bleeding. denies: difficulty swallowing, frequent heartburn, nausea Genitourinary: reports: see HPI, other (vaginal bleeding). denies: dysuria, urinary retention, urgency Musculoskeletal: reports: see HPI, muscle weakness (LLE, pt sts is old). denies: frequent leg cramps, joint pain, joint swelling Integumentary: reports: no symptoms reported Neurological: reports: see HPI, headache/migraines, slurred speech, other (trouble ambulating). denies: numbness, syncope, tremors Psychiatric: reports: no symptoms reported Endocrine: reports: no symptoms reported Hematologic/Lymphatic: reports: no symptoms reported Allergic/Immunologic: reports: no symptoms reported All Other Systems: Reviewed and Negative Past History - Adult - PAST MEDICAL HISTORY-ADULT Review of Records: reports: Nursing Assessment Review, Medications Reviewed, Social history reviewed & non-contributory. Major Childhood Illnesses: reports: denies history Cardiovascular: reports: HTN Respiratory: reports: denies history Gastrointestinal: reports: denies history Obstetrical/Gynecological: reports: denies history Genitourinary: reports: denies history Musculoskeletal: reports: chronic pain Neurological: reports: denies history Psychiatric: reports: other (panic attacks) Endocrine/Immune: reports: Diabetes Other Conditions: reports: denies history - PRIOR SURGERIES/PROCEDURES Surgical/Procedure History: reports: recent surgery, appendectomy, cholecystectomy, hysterectomy, orthopedic (extremity) (bilat feet), joint replacement (rt shoulder 1-2 months ago), back/neck, other - IMMUNIZATION STATUS Childhood Immunizations: See Nurse Assessment Flu Vaccine: See Nurse Assessment - FAMILY HISTORY Family History: reviewed, not pertinent - SOCIAL HISTORY Smoking: other (former smoker) Substance Use: none/never Physical Exam- Neurological - Physical Exam-Neuro Initial Vital Signs Reviewed: Yes General Appearance: appears well, no apparent distress, slow to respond (pt has moments of confusions while giving hx). negative: cachetic, lethargic, obtunded Eye Exam: bilateral eye: normal inspection, PERRL, EOMI HENMT: normocephalic/atraumatic, moist mucous membranes Head Injury: no evidence of injury Neck: non-tender, full range of motion, supple, normal inspection Respiratory: chest non-tender, lungs clear, normal breath sounds Cardiovascular: normal peripheral pulses, regular rate, rhythm Abdominal Exam: normal bowel sounds, soft, no organomegaly, no pulsatile mass, tenderness (RLQ on palp), other (RECTAL EXAM: No lesions or hemorrhoid, NST, light brown stool, no bleeding/tears/masses INTERN RETAIL EXAM: EXT genetalia without lesions. Speculum exam: atrophic vaginal mucosa, thin white d/c, no bleeding or masses. Bimanual: non-tender, no masses). negative: non tender, distended, guarding, rebound Extremity: normal range of motion, non-tender, normal inspection, no pedal edema , no calf tenderness, normal capillary refill, pelvis stable. 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 negative: normal hearing (decreased hearing), abnormal pupil position, abnormal speech, facial asymmetry, facial droop, facial weakness Motor/Sensory: no sensory deficit, no pronator drift, weak motor strength LLE (pt sts is not new). negative: no motor deficit, pronator drift (R), pronator drift (L), sensory deficit Neurologic: negative: no motor/sensory deficits (LLE weakness), aphasia, EOM palsy, facial droop Integumentary: normal color, normal turgor, warm/dry Psych/Mental Status: oriented x 3, other (pt has moments of confusion while d iscussing her hx, pt is oriented.). negative: normal mood/affect, normal thought content, normal thought process - Glascow Coma Scale Best Eye Response: (4) open spontaneously Best Verbal Response: (5) oriented Best Motor Response: (6) obeys commands Total Glascow Score: 15 Progress - PLAN OF CARE/RESULTS Progress/Plan/Lab Results: Vital Signs - 8 hr 05/24/19 14:38 Temperature 98.8 F Pulse Rate 71 Respiratory Rate 17 Blood Pressure 161/86 O2 Sat by Pulse Oximetry 99 05/24/19 15:18 Stool Occult Blood (KATY) - Final Stool Laboratory Results - last 24 hr 05/24/19 05/24/19 05/24/19 14:17 14:30 14:30 WBC RBC Hgb Hct MCV MCH MCHC RDW Std Deviation Plt Count MPV Immature Gran % (Auto) Neut % (Auto) Lymph % (Auto) [place] % (Auto) Eos % (Auto) Baso % (Auto) Immature Gran # (Auto) Neut # (Auto) Lymph # (Auto) [place] # (Auto) Eos # (Auto) Baso # (Auto) PT INR PTT (Actin FS) Sodium 142 Potassium 4.6 Chloride 102 Carbon Dioxide 30 Anion Gap 10 BUN 8 Creatinine 0.8 Estimated GFR/1.73 m2 > 60 BUN/Creatinine Ratio 10 Glucose 134 H POC Glucose 106 H D Calculated Osmolality 283 Calcium 9.1 Total Bilirubin 0.23 AST 10 ALT 11 Alkaline Phosphatase 87 Troponin T High Sens 16 Total Protein 6.8 Albumin 3.8 Globulin 3.0 Albumin/Globulin Ratio 1.3 Urine Source Urine Color Urine Turbidity Urine pH Ur Specific [place] Urine Protein Ur Glucose (Stick) Ur Ketones (Stick) Urine Blood Urine Nitrite Urine Bilirubin Urobilinogen Dipstick Urine Leukocytes Urine WBC (Auto) Urine RBC (Auto) U Epithel Cells (Auto) Urine Bacteria (Auto) Urine Crystals Small Round Cells Urine Casts Urine Yeast-like Cells Urine Opiates Screen Ur Oxycodone Screen Ur Methadone, Qual Ur Barbiturates Screen Ur Phencyclidine Scrn Ur Amphetamines Screen U Benzodiazepines Scrn Urine Cocaine Screen U Cannabinoids Screen Plasma/Serum Ethyl Alc Blood Type Antibody Screen 05/24/19 05/24/19 05/24/19 14:30 14:30 14:30 WBC 10.83 H RBC 4.71 Hgb 12.9 Hct 39.8 MCV 84.5 MCH 27.4 MCHC 32.4 L RDW Std Deviation 14.4 Plt Count 288 MPV 10.5 H Immature Gran % (Auto) 0.2 Neut % (Auto) 69.8 Lymph % (Auto) 22.5 Whitman % (Auto) 5.8 Eos % (Auto) 1.2 Baso % (Auto) 0.5 Immature Gran # (Auto) 0.02 Neut # (Auto) 7.56 H Lymph # (Auto) 2.44 Whitman # (Auto) 0.63 H Eos # (Auto) 0.13 Baso # (Auto) 0.05 PT 13.8 INR 1.05 PTT (Actin FS) 31.0 Sodium Potassium Chloride Carbon Dioxide Anion Gap BUN Creatinine Estimated GFR/1.73 m2 BUN/Creatinine Ratio Glucose POC Glucose Calculated Osmolality Calcium Total Bilirubin AST ALT Alkaline Phosphatase Troponin T High Sens Total Protein Albumin Globulin Albumin/Globulin Ratio Urine Source Urine Color Urine Turbidity Urine pH Ur Specific [place] Urine Protein Ur Glucose (Stick) Ur Ketones (Stick) Urine Blood Urine Nitrite Urine Bilirubin Urobilinogen Dipstick Urine Leukocytes Urine WBC (Auto) Urine RBC (Auto) U Epithel Cells (Auto) Urine Bacteria (Auto) Urine Crystals Small Round Cells Urine Casts Urine Yeast-like Cells Urine Opiates Screen Ur Oxycodone Screen Ur Methadone, Qual Ur Barbiturates Screen Ur Phencyclidine Scrn Ur Amphetamines Screen U Benzodiazepines Scrn Urine Cocaine Screen U Cannabinoids Screen Plasma/Serum Ethyl Alc Blood Type Antibody Screen 05/24/19 05/24/19 05/24/19 14:30 15:18 15:18 WBC RBC Hgb Hct MCV MCH MCHC RDW Std Deviation Plt Count MPV Immature Gran % (Auto) Neut % (Auto) Lymph % (Auto) [place] % (Auto) Eos % (Auto) Baso % (Auto) Immature Gran # (Auto) Neut # (Auto) Lymph # (Auto) [place] # (Auto) Eos # (Auto) Baso # (Auto) PT INR PTT (Actin FS) Sodium Potassium Chloride Carbon Dioxide Anion Gap BUN Creatinine Estimated GFR/1.73 m2 BUN/Creatinine Ratio Glucose POC Glucose Calculated Osmolality Calcium Total Bilirubin AST ALT Alkaline Phosphatase Troponin T High Sens Total Protein Albumin Globulin Albumin/Globulin Ratio Urine Source CATH Urine Color ORANGE Urine Turbidity TURBID Urine pH 5.5 Ur Specific [place] 1.012 Urine Protein 50 A Ur Glucose (Stick) NEGATIVE Ur Ketones (Stick) NEGATIVE Urine Blood MODERATE A Urine Nitrite POSITIVE A Urine Bilirubin NEGATIVE Urobilinogen Dipstick NORMAL Urine Leukocytes LARGE A Urine WBC (Auto) TNTC A Urine RBC (Auto) TNTC A U Epithel Cells (Auto) <10 Urine Bacteria (Auto) 4+ Urine Crystals NONE SEEN Small Round Cells NONE SEEN Urine Casts NONE SEEN Urine Yeast-like Cells NONE SEEN Urine Opiates Screen NONE DETECTED Ur Oxycodone Screen NONE DETECTED Ur Methadone, Qual NONE DETECTED Ur Barbiturates Screen NONE DETECTED Ur Phencyclidine Scrn NONE DETECTED Ur Amphetamines Screen NONE DETECTED U Benzodiazepines Scrn NONE DETECTED Urine Cocaine Screen NONE DETECTED U Cannabinoids Screen NONE DETECTED Plasma/Serum Ethyl Alc Blood Type O POSITIVE Antibody Screen NEGATIVE Orders Category Date Time Status Cardiac Monitoring DIRECTED Care 05/24/19 14:05 Active Finger Stick Blood Sugar (ED) DIRECTED Care 05/24/19 14:05 Completed Saline Loc NOW Care 05/24/19 14:05 Active CHEST-PORTABLE [RAD] Stat Exams 05/24/19 14:[address] ABD/PELVIS W/IV CONT ONLY [CT] Stat Exams 05/24/19 15:[address] HEAD W/O CONTRAST [CT] Stat Exams 05/24/19 15:50 Completed ALCOHOL BLOOD Stat Lab 05/24/19 14:30 Completed BLOOD CULTURE [BLDCUL] Stat Lab 05/24/19 16:29 Received CBC WITH ELECTRONIC DIFF [HEME] Stat Lab 05/24/19 14:30 Completed COMPREHENSIVE METABOLIC PANEL [CHEM] Stat Lab 05/24/19 14:30 Completed OCCULT BLOOD SCREENING [STOOL] Stat Lab 05/24/19 15:18 Completed PROTIME WITH INR [COAG] Stat Lab 05/24/19 14:30 Completed PTT [COAG] Stat Lab 05/24/19 14:30 Completed TROPONIN T HIGH SENSITIVITY Stat Lab 05/24/19 14:30 Completed TYPE & SCREEN [BBK] Stat Lab 05/24/19 14:30 Completed URINALYSIS W/POSS RFLX CULT [URINALYSIS] Stat Lab 05/24/19 15:18 Completed URINE CULTURE [RM] Routine Lab 05/24/19 17:00 Received URINE DRUG SCREEN Stat Lab 05/24/19 15:18 Completed URINE MANUAL MICROSCOPIC [URINALYSIS] Stat Lab 05/24/19 15:18 Completed 0.9% Sodium Chloride Inj [Ns] 1,000 ml Med 05/24/19 14:09 Discontinued IV 999 mls/hr CefTRIAXONE [Rocephin] 1 gm Med 05/24/19 15:42 Discontinued 0.9% Sodium Chloride Inj [Ns] 50 ml IV NOW EKG [EKG] Stat Ther 05/24/19 14:05 Draft Result Diagrams: 05/24/19 14:30 05/24/19 14:30 - EKG 1 Time of EKG reading by physician:: 14:32 EKG Read and Signed by:: Gabe Mejia EKG Interpretation (*Must complete 3 of following elements*): Abnormal Rate: 71 Rhythm: NSR [place]: normal QRS: LBB NC Interval: normal ST Wave: normal Prior EKG Comparison: unchanged from prior (02/27/19) Comments: No stemi - XRAY 1 XRAY Study: Chest Impression: See EMR Report ( CHEST-PORTABLE - 05/24/2019 INDICATION: stroke like symptoms COMPARISON: 03/02/2019 FINDINGS: Stable calcified granulomas in the left lung base and left hilum. Stable linear atelectasis in the left midlung. No infiltrates or edema. Heart size and pulmonary vascularity is normal. IMPRESSION: No acute disease or change from prior. Electronically signed by Lizandro Mello 05/24/2019 2:20 PM) - CT/MRI 1 CT Study: Head Impression: Abnormal, See EMR Report ( EXAM: CT HEAD W/O CONTRAST INDICATION: stroke like symptoms TECHNIQUE: This exam was performed using automated exposure control, adjustment of mA or kV according to patient size, and/or use of iterative reconstruction technique. COMPARISON: 02/19/2019 FINDINGS: T here is patchy low attenuation in the periventricular and subcortical white matter suggesting mild microangiopathy, stable. There is no definite acute infarct given the limited sensitivity of CT versus MRI. There is no discrete intracranial mass, mass effect, or intracranial hemorrhage. The surrounding soft tissues and bony structures are essentially unremarkable. IMPRESSION: Stable chronic appearing white matter changes. No definite acute intracranial pathology by CT. Electronically signed by Wade Palm 05/24/2019 4:11 PM) 2 CT Study: Abdomen, Pelvis Impression: See EMR Report (EXAM: CT ABD/PELVIS W/IV CONT ONLY INDICATION: rectal bleeding, vaginal bleeding, RLQ pain TECHNIQUE: This exam was performed using automated exposure control, adjustment of mA or kV according to patient size, and/or use of iterative reconstruction technique. COMPARISON: None. FINDINGS: There is a calcified granuloma at the left lung base. There is mild subsegmental atelectasis and/or scarring at the lung bases. There has been a previous cholecystectomy. There is mild compensatory biliary dilatation. The liver, spleen, pancreas, and kidneys are essentially unremarkable. The urinary bladder is partially distended. Urinary bladder wall is thickened and there is pericystic inflammatory stranding suggesting cystitis. There has been a previous hysterectomy. There are bilateral 2 cm cystic structures in the pelvis in the region where the ovaries would be expected. However, there has reportedly been a total hysterectomy. Please correlate with surgical history. There is trace nonspecific free fluid layering in the pelvis. There has been a prior appendectomy. There is uncomplicated diverticulosis coli, mainly involving the sigmoid colon. No focal bowel wall thickening or bowel obstruction is identified. There is a tiny hiatal hernia. The remainder of the GI tract is essentially unremarkable. No free abdominal gas is identified. There is spinal degenerative arthropathy and there is chronic appearing height loss at the L1 vertebral body. There are degenerative changes of both hips. There is no evidence of acute osseous abnormality. IMPRESSION: 1.Thickened urinary bladder wall with adjacent stranding suggesting cystitis. 2.Uncomplicated diverticulosis coli. 3.Two nonspecific cystic lesions in the pelvis in the expected location of the ovaries. However, there has reportedly been a prior total hysterectomy. 4.Other incidental/nonacute findings detailed above. Electronically signed by Wade Palm 05/24/2019 4:19 PM) - CONSULTS/PCP/HOSPITALIST Notification #1 *Consult/PCP/Hospitalist*: NILDA George, paged at 1965 Time Discussed: 17:46 Reason/Comments: admot to [place] Consult Disposition: Will see in ED, Admit Departure - Departure Date of Disposition Decision: 05/24/19 Time of Disposition Decision: 17:23 DIAGNOSIS: Transient ischemic attack, Lower abdominal pain of unknown etiology, Cystitis Disposition: ADMITTED INPATIENT 09 Certified Medical Emergency: Emergent Condition: Stable Referrals and Follow-Ups: None,PCP [Primary Care Provider] - [facility] [Outside] - Critical Care Note This patient required my direct & personal management of CC.: Yes Attestation - Physician/ BRET Attestation Patient care was provided by Advanced Practice Provider:: No The physician spent face to face time with patient:: Yes Advanced Practice Provider documentation review:: Supervising physician onsite and consulted in the evaluation and care of this patient. The physician did have a face to face encounter with the patient. - NIH Stroke Scale NIH Type: Initial Evaluation LOC Questions (ask month and age): 0-Answers Both Correctly LOC Commands (ask to open & close eyes;make a fist, let go): 0-Obeys Both Correctly Best Gaze (horizontal eye movement): 0-Normal Visual (use finger movement, counting or visual threat): 0-No Visual Loss Facial Palsy (show teeth or raise eyebrows & close eyes tght: 0-Symmetrical Movement Motor Function-left arm: 0-Normal Motor Function-right arm: 0-Normal Motor Function-left le-Some Effort Against [place] (but patient states it has been that way "for quite some time.") Motor Function-right le-Normal Limb Ataxia([id number], or heel to [place]): 0-No Ataxia Sensory(pin prick to face,arms,trunk,legs-compare side/side): 0-No Ataxia Best Language(name item/read sentence.Ex-Down to Earth): 1-Mild to Moderate Aphasia Dysarthria(Pt read words or say words Ex.Mama,Tip-Top,Thanks: 0-Normal Articulation Extinction and Inattention: 0-Normal NIH Total Score: 1 Modified [place] Score Criteria: 2-slight disability Stroke tPA Guidelines - Inclusion Criteria for IV tPA 18 years old or older: Yes Ischemic stroke with measurable deficit: Yes Onset <3 hours ago *OR* 3-4.5 hours ago: No (wake-up stroke symptoms) - Exclusion Criteria for IV tPA Seizure at stroke onset: No Active internal bleeding or acute trauma: Unable to Obtain (? melena reported) Platelet Count Less Than 100,000: No Heparin Within Last 48 HRS (PTT >Lab normal limits): No INR > 1.7 (warfarin use): No Serious Head Trauma Within Last 3 Months: No Arterial Puncture Within Last 7 Days: No Lumbar Puncture Within Last 7 Days: No Repeated systolic Blood Pressure >185 or Diastolic >110: No - Additional Exclusion Criteria for IV tPA Currently on Coumadin: No Patient older than 80: No Prior stroke and diabetes: No Baseline NIHSS score > 25: No - Relative Contraindications to IV tPA CT reveals extensive area of infarct (>1/3 MCA territory): No Minor or rapidly improving stroke symptoms: Yes Major Surgery or Serious Trauma In Previous 14 Days: No AMI within 3 months: No Gastrointestinal or Urinary Tract hemorrhage in Past 21 Days: Unable to Obtain (melena reported) Post - AMI pericarditis: No Blood Glucose Less Than 50 mg/dl or Greater Than 400 mg/dl: No - Consultation Candidate for:: NOT A CANDIDATE This chart was documented by the indicated scribe, (Valerie Palm Scribe) and accurately reflects the services I performed and decisions made by Roberto carranza Kent A., MD, as attested by the provider's signature.
--- NOTE | 2019-05-24 18:51 | HISTORY AND PHYSICAL ---
PRIMARY CARE PHYSICIAN: Listed as none. CHIEF COMPLAINT: Inability to speak, weakness, unsteady gait that began this morning. HISTORY OF PRESENTING ILLNESS: This is a 74-year-old female who presents to [facility] via EMS after she was unable to speak this morning, could not get out of bed, had an unsteady gait with assistance to go to the bathroom by the home health RN after she woke up. States that about almost 2 months ago now she had her right shoulder replaced. Has been doing well with that but has had about a 40 pounds weight loss after the shoulder surgery after she arrived to the emergency room. She is alert and oriented x3. She is able to speak without any slurring of speech or facial drooping. She is able to ambulate independently. Her workup showed a head CT was stable chronic appearing white matter changes. No definite acute intracranial pathology by CT. Abdomen and pelvic CT showed thickening urinary bladder wall with adjacent stranding suggesting cystitis. Her chest x-ray showed no acute disease or change from prior. Laboratory data was fairly unremarkable except for her urinalysis that showed positive nitrites, large leukocytes and 4+ bacteria. So, she will be admitted for further evaluation and treatment. PAST MEDICAL HISTORY: Hypertension, diabetes type 2, and chronic pain. PAST SURGICAL HISTORY: Hysterectomy, appendectomy, cholecystectomy, bilateral feet surgery, right shoulder surgery approximately 2 months ago, and back surgery. FAMILY HISTORY: Reviewed and noncontributory. SOCIAL HISTORY: She currently lives with family, is a former smoker but has been quit for many years. Denied any alcohol or illicit drug use. ALLERGIES TO: Meperidine, oxycodone, acetaminophen and hydrocodone. HOME MEDICATIONS: A current list will need to be obtained, reconciled, reviewed and restarted as appropriate. We will place an order for nursing to update and confirm home medications. LABORATORY DATA: Showed a white blood cell count of 10.83, hemoglobin 12.9, hematocrit 39.8, platelets 288,000. PT and INR of 13.8 and 1.05. Sodium of 142, potassium 4.6, chloride 102, CO2 of 30, BUN of 8, creatinine 0.8, glucose 134. Troponin T high sensitivity was 16. Urinalysis showed positive nitrites, large leukocytes, 4+ bacteria. Urine drug screen showed none detected. Serum alcohol level showed none detected. CT of the head showed stable chronic appearing white matter changes. No definite acute intracranial pathology by CT. CT of the abdomen and pelvis showed thickening of the urinary bladder wall with adjacent stranding suggesting cystitis. Uncomplicated diverticulosis coli. Chest x-ray showed no acute disease or change from prior. EKG showed normal sinus rhythm at 71. REVIEW OF SYSTEMS: She denied any fever, chills, blurred vision, dizziness, chest pain, coughing, or shortness of breath. She complained of generalized weakness, unsteady gait, inability to speak that is now resolved. She denied any abdominal pain, or constipation. She was positive for diarrhea as well. She has had a 40-pound weight loss over the past 2 months since her shoulder surgery and denied any burning or hurting with urination. PHYSICAL EXAMINATION: On arrival, she had a temperature of 98.8 degrees, pulse 71, respirations 17, blood pressure 161/86 saturating 99% on room air. GENERAL: This is a 74-year-old female who is sitting on the side of the bed. Answers questions appropriately. HEENT: Normocephalic, atraumatic. Normal ENT inspection. Oropharynx and nares are clear. EYES: Pupils are equal, round, reactive to light and accommodation. Extraocular movements are intact. NECK: Normal inspection. Normal range of motion. LUNGS: Clear to auscultation bilaterally with equal lung expansion and chest wall movement. HEART: Regular rate and rhythm. No murmurs, rubs, or gallops. ABDOMEN: Soft, nontender, nondistended. Bowel sounds are present x4 quadrants. MUSCULOSKELETAL: She has 5/5 strength x4 extremities. She ambulated in her room without assistance without difficulty. NEUROLOGICAL: The cranial nerves 2-12 appear grossly intact with a clear speech and a steady gait at this time. ASSESSMENT: 1. Transient ischemic attack versus cerebrovascular accident. 2. Urinary tract infection. 3. Diabetes type 2. 4. Hypertension, history of. PLAN: She will be admitted to the medical unit, placed on telemetry, placed on Rocephin 1 gram IV every 24. Received that first dose in the emergency room. Normal saline at 75 mL an hour. She does state that she has not taken her aspirin in the last 2 days. Did not give a clear reason why. So we will go ahead and give her baby aspirin dose now. We will do pattern blood sugars with sliding scale insulin. Check a lipid panel in the a.m. MRI of the brain in without contrast in the a.m. an echocardiogram and bilateral carotid Doppler in the a.m.. Per ER documentation, the patient was not a candidate for tPA. Further orders after seen by attending. Dictated by NILDA Sparks for Imtiaz Castro MD cc: NILDA Sparks MD I agree with most components of history, physical, assessment and plan. A separate addendum has been dictated. ABHI
[2019-05-24] MEDS ORDERED: ZOFRAN IV PRN (19:47)
[2019-05-24] MEDS ORDERED: TYLENOL PO PRN (19:47)
[2019-05-24] MEDS ORDERED: NS 1,000 ML IV SCH (19:47)
--- NOTE | 2019-05-24 19:52 | HISTORY AND PHYSICAL ---
HISTORY OF PRESENT ILLNESS: Addendum to history and physical dictated by the nurse practitioner. I agree with most components of history, physical assessment and plan. In brief, Ms. Campbell is a 74- year-old lady with past medical history of anxiety, essential hypertension, peripheral neuropathy, hyperlipidemia, who comes in with chief complaints of stroke-like symptoms with left- sided facial droop, inability to speak and left upper and lower extremity weakness which started at about 11 a.m. this morning. Apparently, patient had gone to sleep last night around midnight time and woke up very late this morning. As soon as she woke up and she was trying to go to the bathroom, she started feeling extremely weak and she was not able to speak out any words, so the home care nurse who was at home had called EMS. It looks like she could have had a stroke while she was asleep. When she presented to the emergency room, CT scan of the head did not detect any cerebrovascular accident or intracranial hemorrhage. The hospitalist team was consulted for further management. Apparently, by the time patient came back to the hospital, her speech has started coming back to normal and her weakness was improving. At the time of my evaluation, patient complains of burning and pain while passing urine. She also complained of some vaginal bleeding and rectal bleeding. VITAL SIGNS: Currently, temperature 98.8 degrees, pulse 71, respiratory rate 17, blood pressure 160/86. She is saturating 99% on room air. PHYSICAL EXAMINATION: Oral cavity is moist. Air entry bilaterally equal. No wheeze, rhonchi, crackles. CARDIOVASCULAR: S1, S2 normal. No murmur or gallop. ABDOMEN: Soft, nontender. EXTREMITY: No lower extremity edema. SKIN: She has pink skin. She has some superficial erosions on bilateral knees from scratching. NEUROLOGICAL: She is alert. She is oriented to time. She is oriented to her birthday. She is oriented to place. She is oriented to situation as well. She does have some tangentiality in her thought process while speaking. Cranial examination: No facial asymmetry. Extraocular movements intact both sides of midline. Pupils are bilaterally equal, reacting to light. She has intact facial sensation. I did not check for taste. Her tongue appears midline. She has intact cough. Her left shoulder shrug is normal. She had right shoulder surgery and could not shrug. She has intact and equal sensation to cool touch on both sides of face, upper and lower extremity as well as torso. Her tone appears normal and adequate bilateral lower extremities and left upper extremity. She does have more painful right elbow and shoulder movements. I could not re- evaluate her better. Reflexes: She has 1+ knee jerks bilaterally. I did not check her gait. I Could not see any dysarthria. She was able to perform rapid alternate movement using left hand. She is not able to move her right upper extremity well. Lab data WBC 50356, hemoglobin 12.9, platelet 288,000. INR 1.05. BUN 8, creatinine 0.8. Urinalysis: Pyuria and hematuria. ASSESSMENT AND PLAN: 1. Suspected right hemispheric cerebrovascular accident versus transient ischemic attack. 2. Acute cystitis with hematuria. 3. Essential hypertension. 4. History of anxiety. 5. Plan: I will allow permissive hypertension and we will get echocardiogram, MRI brain, MRA of the brain and carotid ultrasounds. 6. I will start her on intravenous ceftriaxone and we will await further reconciliation of medications to resume her home medications. 7. The patient also complained of some diarrhea, though stool occult blood test was negative. She states she has had significant weight loss. I will start her on intravenous fluids. DISPOSITION: Monitor patient inside the hospital. Plan of care discussed with the patient. I called the patient's daughter and gathered pertinent historical data. I discussed with her about possible TIA. I discussed with her about urine tract infection. She asked me questions regarding her suspected GI bleed and vaginal bleed. I told her about the negative stool occult blood test. Plan of care discussed with her daughter as well. All questions have been answered. cc: Imtiaz Castro MD
[2019-05-24] MEDS: ASPIRIN PO SCH (22:17)
[2019-05-24] MEDS: HUMALOG SUBQ SCH (22:42)
[2019-05-24] MEDS ORDERED: BUSPAR PO ONE (23:15)
[2019-05-25] MEDS ORDERED: IMODIUM PO ONE (00:48)
[2019-05-25] MEDS: HUMALOG SUBQ SCH ×2 (06:52→13:04)
[2019-05-25] MEDS: ASPIRIN PO SCH (11:13)
[2019-05-25 11:59] LABS: BASO# 0.04 X1000 (0.0-0.2); BASO% 0.5 % (0.0-0.8); EOS# 0.16 X1000 (0.0-0.7); EOS% 1.9 % (0.0-10.0); HEMATOCRIT 38.9 % (37.0-47.0); HEMOGLOBIN 12.5 g/dL (12.0-16.0); LYMPH# 2.79 X1000 (1.2-3.4); LYMPH% 33.1 % (20.5-51.1); MCH 27.5 PG (27-31); MCHC 32.1 g/dL (33-37); MCV 85.5 FL (81-99); MONO# 0.53 X1000 (0.11-0.59); MONO% 6.3 % (1.7-9.3); MPV 10.2 FL (7.4-10.4); NEUT# 4.92 X1000 (1.4-6.5); NEUT% 58.2 % (42.2-75.2); PLT 256 X1000 (130-400); RBC 4.55 XMIL (4.2-5.4); RDW 14.8 % (11.5-14.5); WBC 8.44 X1000 (4.8-10.8)
[2019-05-25] MEDS ORDERED: VENTOLIN HFA INH PRN (12:05)
[2019-05-25] MEDS ORDERED: LIPITOR PO ONE (12:08)
[2019-05-25] MEDS ORDERED: BUSPAR PO SCH (12:15)
[2019-05-25] MEDS ORDERED: PRISTIQ ER PO SCH (12:15)
[2019-05-25] MEDS ORDERED: ASPIRIN PO SCH (12:15)
[2019-05-25 12:18] LABS: AGAP 16; BUN 8 mg/dL (8-22); CALCIUM 9.2 mg/dL (8.8-10.2); CHLORIDE 103 mmol/L (98-107); COSMO 282; CREATININE 0.7 mg/dL (0.5-0.9); ESTIMATED GFR > 60; GLUCOSE 133 mg/dL (70-104); POTASSIUM 3.8 mmol/L (3.5-5.1); SODIUM 141 mmol/L (136-145); TCO2 22 mmol/L (25-35)
[2019-05-25] MEDS ORDERED: MAGNESIUM SULFATE 2 GM/S.W.I. 2 GM/50 ML IVPB IV SCH (14:00)
[2019-05-25 14:07] VITALS: BP 137/71
[2019-05-25] MEDS ORDERED: MAG-OX PO ONE (14:24)
[2019-05-25] MEDS ORDERED: ROCEPHIN 1 GM in NS 50 ML IV SCH (16:00)
--- NOTE | 2019-05-25 16:42 | DISCHARGE SUMMARY ---
ADMISSION DATE: 05/24/2019 DISCHARGE DATE: 05/25/2019 DISCHARGE DISPOSITION: Home with family. DISCHARGE CONDITION: Hemodynamically stable. She does not have aphasia. She does not have any focal abnormality on neurological examination. Despite understanding the necessity of it, the patient had refused to undergo MRI of the brain. She had refused to wait to get the echocardiogram as well as urine culture results back. She was explained the risks associated with it. She was explained about the nature of her illness but she was adamant about going home, so she was given a prescription of atorvastatin, oral antibiotics, and magnesium, and was discharged to home. She was advised to schedule an appointment with her outpatient provider within 3 to 5 days, and discuss about getting an MRI of the brain done within the next few days. I had a detailed discussion about the course, diagnosis, and followup with her daughter, who is in agreement with the plan. DISCHARGE DIAGNOSES: 1. Transient ischemic attack. 2. Acute cystitis with hematuria due to E Coli UTI. 3. Essential hypertension. 4. History of anxiety. OTHER DIAGNOSES: 1. History of hyperlipidemia. 2. History of essential hypertension. 3. History of chronic obstructive pulmonary disease. 4. Hyperlipidemia. 5. Mild cognitive impairment or mild dementia DISCHARGE MEDICATIONS: 1. Aspirin 81 mg daily. 2. Buspirone 10 mg t.i.d. 3. Combivent Respimat 4 g inhalation as needed for shortness of breath. 4. Losartan 25 mg daily. 5. Esomeprazole magnesium 40 mg daily. 6. Furosemide 80 mg daily. 7. Loperamide 2 mg orally as needed for diarrhea. 8. Propranolol 10 mg daily. 9. Potassium chloride 8 mEq daily. 10. Pristiq 50 mg daily. 11. Ventolin inhalation as needed for shortness of breath. 12. Zofran 4 mg as needed for nausea and vomiting. 13. Atorvastatin 40 mg at nighttime, 90 tablets have been prescribed. She was listed to be taking fenofibrate as well as simvastatin which were changed to atorvastatin, considering she had transient ischemic attack, to provide high-intensity statin and considering it can potentially cause interaction with fenofibrate and rhabdomyolysis, fenofibrate was discontinued. 14. Estradiol 1 mg. She was advised to stop it after discussing with her doctor, considering it could increase the risk of arterial and venous thrombosis. 15. Keflex 250 mg 4 times a day, 16 capsules, for UTI. 16. Magnesium oxide 40 mg daily, 7 tablets. VITALS: At the time of discharge, temperature 97.9 degrees, pulse 72, respiratory rate 18, blood pressure 137/71, saturating 100% on room air. PHYSICAL EXAMINATION: At the time of discharge, Ms. Campbell did not appear in any acute distress, though she was anxious and crying. Oral cavity was moist. Lungs: Air entry bilaterally equal. No wheeze, rhonchi, or crackles. S1 and S2 normal. No murmur, rub, or gallop. Abdomen: Soft, nontender. No lower extremity edema. She was alert. She was oriented with place. She was not entirely oriented with the situation though. She forgot the reason why she was in the hospital. However, I reoriented and I discussed with her about the events that happened yesterday. She could recognize me. Neurological Examination: No facial asymmetry. Pupils are bilaterally equal, reacting to light. Extraocular movements intact both sides of midline upwards and side-to- side direction. Tongue appears midline. Speech and cough are intact. Visual acuity is grossly intact. Hearing is also grossly intact, though she did appear to have mild hearing impairment. Left shoulder shrug was normal and strong. Her sensations were intact bilateral face, upper extremity and lower extremity. Her power was 5/5 in bilateral lower extremities, as well as left upper extremity. Because of recent shoulder surgery, she had difficulty moving her right upper extremity which had not become worse since after surgery. She was able to come out of bed without anyone's help and go to the bathroom. LABS: At the time of admission and discharge, WBC was 10.8 on admission which improved to 8.4 at the time of discharge, hemoglobin 12.5, platelets 256,000. BUN 8, creatinine 0.7, blood glucose 141. Magnesium was 1.4. She was given 800 mg of oral magnesium before discharge and was given an oral magnesium prescription. Total cholesterol 166, LDL of 103. Urinalysis had large leukocyte, ixg-auhohtiz-xn-count WBCs, fto-obljehry-vm-count RBCs. Urine culture had gram negative carmen. Blood culture, one I had collected which was in the lab. However, my suspicion of sepsis was low. Stool occult blood test on presentation was negative. IMAGING: During hospital admission, chest x-ray on presentation did not have any evidence of acute disease. Abdomen and pelvis CT had thickened urinary bladder wall with adjacent stranding suggestive of cystitis. Uncomplicated diverticulosis coli. Two nonspecific cystic lesions in the pelvis and the expected location of the ovaries. However, there was reportedly prior total hysterectomy. Other incidental findings. Electrocardiogram on presentation had normal sinus rhythm, left bundle branch block. Head CT on presentation had stable chronic- appearing white matter changes. No definitive acute intracranial pathology. HOSPITAL COURSE SUMMARY: Ms. Campbell is a 74-year-old, lady who presented to the emergency room on 05/24/2019 with chief complaints of difficulty speaking, weakness, and possibly facial droop. The patient had gone to sleep on 05/23/2019 at around midnight or 11 p.m. and she woke up the next day, on 05/24/2019, at around 11 a.m. She woke up and she was trying to go to the bathroom. She found herself to be extremely weak. There was a home care nurse available who also saw patient had a left-sided facial droop and patient was not able to speak out any words and was appearing aphasic, so EMS was called and patient was brought to the emergency room. In the emergency room, she was found to have a temperature of 98.8 degrees, pulse of 71, blood pressure 161/86, respiratory rate of 17, and she was saturating 99% on room air. On the emergency room physician's evaluation, she had normal speech. Pupils were equal and reacting. There was no motor deficit, pronator drift, or sensory deficit. There was no aphasia or facial droop. Head CT was unremarkable. Considering her possible stroke-like symptoms, hospitalist team was consulted for further management. By the time of this recording, the patient has undergone ultrasound of carotid. The preliminary report did not have any significant atherosclerosis. The patient did not tolerate the entire echocardiogram procedure and echocardiogram read was pending. She was advised to get an MRI of the brain as well as MRA of the brain. However, she has claustrophobia and she told me that she would not be able to go through the MRI. She was anxious about going home. I had a detailed discussion about her condition with the patient as well as her daughter on the phone and I have explained to both of them about the need for getting MR imaging done. Considering patient's symptoms had resolved and had not reappeared for almost 24 hours, it was decided to discharge her on aspirin and atorvastatin. She was strongly recommended to follow up with outpatient provider, to get the followup reports of the urine culture, echocardiogram, and MR imaging. Thirty-five minutes were spent in discharging this patient. Plan of care was extensively discussed with daughter. She was allowed to ask questions. All of her questions were satisfactorily answered. ADDENDUM: I left a voice message for Ms Campbell's daughter updating her about the urine culture results. cc: Imtiaz Castro MD MTDD
[2019-05-26] MEDS ORDERED: PRILOSEC PO SCH (07:00)
[2019-05-26] MEDS ORDERED: LASIX PO SCH (09:00)
[2019-05-26] MEDS ORDERED: COZAAR PO SCH (09:00)
--- NOTE | 2019-05-26 16:28 | Carotid Study ---
DATE: 05/24/2019 REQUESTING PROVIDER: NILDA Sparks [employer] WORKER: [place]. INDICATIONS: CVA. TIA. EQUIPMENT: [employer] Vivid E9 ultrasound system with a 9 L-D transducer. FINDINGS: Complete diagram of ultrasound images can be seen scanned in patient's medical record. The peak systolic velocity noted on the right side is in the distal internal carotid artery and is noted to be 93. The peak systolic velocity noted on the left side is noted in the distal internal carotid artery and noted to be 82. The calculated internal common ratio on the right is 1.72 and left 1.32. Calculated stenosis on the right 0 to 39%, left 0 to 39%. There appears to be some atherosclerosis noted to bilateral carotid systems. The patient was somewhat uncooperative which does limit the interpretive ability of this study. Both vertebral arteries were antegrade flow. By strict velocity criteria no hemodynamically significant flow-limiting stenosis. INTERPRETATION: By strict velocity criteria no hemodynamically significant flow-limiting stenosis noted to bilateral carotid arteries but the patient was somewhat uncooperative so the study may be limited. cc: MD Doris Son CRNP
[2019-05-26] MEDS ORDERED: LIPITOR PO SCH (21:00)
--- NOTE | 2019-05-26 22:36 | ECHO REPORT ---
ORDER DATE: 05/25/2019 MEASUREMENTS: Septal thickness 1.2, left ventricular internal diameter in diastole 3.8, posterior wall thickness 0.9, left ventricular internal diameter in systole 2.4, aortic root 3.0, left atrium 4.4. SUMMARY: 1. Fair quality study. 2. The aortic valve is trileaflet and opens normally on 2-dimensional images. The peak gradient across the aortic valve is approximately 10 mmHg with a mean gradient of 7 mmHg. Moderate mitral annular calcification is demonstrated. Tricuspid valve is without evidence of structural abnormality. Mitral annular calcification is demonstrated with associated thickening of posterior mitral leaflet. Mitral valve area by pressure halftime method is 2.3 cm2. The mean gradient across the mitral valve is 6 mmHg with a peak gradient across the mitral valve of 13 mmHg. Mild mitral stenosis is suggested. Tricuspid valve is without evidence of structural abnormality with trace tricuspid regurgitation. Pulmonic valve is not well demonstrated. The aortic root is normal in size. 3. Normal left ventricular dimension is suggested. The estimated left ventricular ejection fraction appears to be at least 70%. No regional wall motion abnormality is evident. Doppler suggests grade 1 left ventricular diastolic dysfunction. Left atrium is mildly enlarged. Right atrium and right ventricle are normal in size with grossly preserved right ventricular systolic function. 4. No pericardial effusion. 5. Appearance of inferior vena cava suggests normal central venous pressure. CONCLUSIONS: 1. Moderate mitral annular calcification with mild mitral stenosis suggested by Doppler. 2. Estimated left ventricular ejection fraction is at least 70%. 3. Grade 1 left ventricular diastolic dysfunction is suggested. 4. Mild left atrial enlargement. cc: MD Doris Stoll CRNP MTDD
== END 2019-05-25 15:35 | disposition home health service (06) ==
LOC: ED 13:49 → INTOOBSV 18:57 → EDIPHOLD 18:57 → 3N 20:01
PROVIDERS: ATTEND Internal Medicine